=== PATIENT | female | born 1930 | race Caucasian/White ===

== ENCOUNTER 2016-06-02 12:08 | Observation (INO) | payer MEDICARE, OTHER ==
[~2016-06-02] VITALS: Ht 152.4 cm; Wt 61.1 kg
[~2016-06-02 12:08] MED LIST: ASPI81TA40 PO
[2016-06-02 12:13] VITALS: BP 138/79; PULSE 78; RESP 18; O2SAT 94
[2016-06-02] MEDS ORDERED: 0.9% Sodium Chloride 1,000 ML IV ONE (12:32)
--- NOTE | 2016-06-02 12:35 | ED.REPORT ---
HPI-General Illness Date of Service Jun 02, 2016 ED Provider: Kirit Ryan MD 86 year old female with a hx of UTI presents to the ED via EMS after she was found by a tree sapper this morning disoriented and confused. The patient was found in her bedroom on the floor covered in her own feces. When asked the patient was unable to give an accurate history of when she fell. EMS did not notice any obvious injury. Pt lives at home alone and is typically alert and oriented at baseline. Nursing Notes Stated Complaint: CONFUSION, FALL Chief Complaint: General Complaint Nursing Notes Reviewed: Yes Allergies: Coded Allergies: Penicillins (Verified Allergy, Severe, rash, 04/21/10) Scheduled Calcium Carbonate/Vitamin D3 (Calcium 500 + Vit D Caplet) 1 Each Tablet 1 EACH PO BID Fluocinolone 0.025% Oint (Fluocinolone 0.025% Oint) 60 Applic/15 Gm Oint 1 APPLIC TOPICAL BID General Time Seen by MD: 12:28 Chief Complaint Other (Found down) Hx Obtained From: EMS Unable to Obtain Hx: Mental status Arrived By: Ambulance Onset Occurred: Onset unknown Symptom Duration: Duration unknown Past Medical History Past Medical History Dementia, presumably Alzheimers 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 Reports: Hyperlipidemia Reports: Urinary tract infection Past Surgical History Transanal excision of rectal neoplasms x2 R breast lump excision x2 Reports: , Tonsillectomy Smoking History Unknown if Ever Smoker Review of Systems Unable to Obtain ROS Mental status Full Review of Systems Neurologic: Reports: Confusion Physical Exam Vital Signs Vital Signs Date Time Temp Pulse Resp B/P Pulse Ox O2 Delivery O2 Flow Rate FiO2 06/02/16 12:13 37.9 78 18 138/79 94 Room Air Initial VS: Reviewed Skin: Warm, Dry General/Constitutional: Awake Alertness: Positive: Confused, Disoriented Head / Eyes: Atraumatic, Normocephalic, PERRL Mouth: Positive: Mucous membranes dry Neck: Atraumatic, Supple, Full range of motion, No adenopathy Respiratory / Chest: Breath sounds NL, Breath sounds = bilat, No respiratory distress, No rales, No rhonchi, No wheezing Cardiovascular: Heart rate NL, Regular rhythm, Heart sounds NL, No gallop, No murmurs, No rubs, Cap refill not delayed, Peripheral circulation NL Abdomen: Soft, Non-tender, BS normoactive Lower Extremity / Pelvis / MS: Neurologic intact, Vascular intact no shortening or rotation Neurologic: No motor deficits (MAEx4) Mental Status: Positive: Confused, Disoriented to place, Disoriented to time No facial droop or asymmetry Interpretation & Diagnostics Lab Results Interpretation Result Diagram: 06/02/16 1238 06/02/16 1238 Test 06/02/16 12:20 06/02/16 12:38 Urine Color Yellow (YELLOW) Urine Appearance Clear (CLEAR,HAZY) Urine pH 6.5 (5.0-8.0) Urine Specific [place] 1.025 (1.003-1.035) Urine Protein Negativemg/dL (NEG,TRACE) Urine Glucose (UA) Negativemg/dL (NEGATIVE) Urine Ketones Negativemg/dL (NEGATIVE) Urine Occult Blood Negative (NEGATIVE) Urine Nitrite Negative (NEGATIVE) Urine Bilirubin Negative (NEGATIVE) Urine Urobilinogen Normalmg/dL (NORMAL) Urine Leukocyte Esterase Negative (NEGATIVE) Urine RBC 0-2/hpf (0-2) Urine WBC 0-5/hpf (0-5) Urine Epithelial Cells Few/hpf (NONE-MOD) Urine Crystals None seen (NONE SEEN) Urine Bacteria None/hpf (NONE-FEW) Urine Hyaline Casts None/lpf (NONE) Urine Granular Casts None seen (NONE SEEN) Urine Waxy Casts None seen (NONE SEEN) Urine Red Blood Cell Casts None seen (NONE SEEN) Urine White Blood Cell Casts None seen (NONE SEEN) Urine Mucus Present (None Seen) Urine Trichomonas None seen (NONE SEEN) Urine Yeast None (NONE SEEN) Urinalysis Comment None Urine Culture Reflexed Not indicated White Blood Count 4.8th/mm3 (3.8-10.1) Red Blood Count 4.87mil/mm3 (3.90-5.20) Hemoglobin 14.3g/dL (12.0-15.6) Hematocrit 43.5% (35.0-46.0) Mean Corpuscular Volume 89.3fL (81-100) Mean Corpuscular Hemoglobin 29.4pg (27.0-35.0) Mean Corpuscular Hemoglobin Concent 32.9% (32.0-37.0) Red Cell Distribution Width 13.2% (12.3-15.4) Platelet Count 171bil/L (150-400) Neutrophils (%) (Auto) 75.8% (40-74) Lymphocytes (%) (Auto) 12.8% (14-46) Monocytes (%) (Auto) 9.8% (4-12) Eosinophils (%) (Auto) 0.8% (0-5) Basophils (%) (Auto) 0.6% (0-3) Prothrombin Time 10.6sec (8.1-12.5) Prothromb Time International Ratio 0.99ratio Sodium Level 135mEq/L (134-144) Potassium Level 4.2mEq/L (3.5-5.2) Chloride Level 98mEq/L (97-108) Carbon Dioxide Level 22mmol/L (18-29) Blood Urea Nitrogen 16mg/dL (8-27) Creatinine 0.77mg/dL (0.57-1.00) Estimat Glomerular Filtration Rate 101mL/min (>59) Glucose Level 113mg/dL (60-99) Lactic Acid Level 1.8mmol/L (0.4-2.0) Calcium Level 9.8mg/dL (8.5-10.1) Magnesium Level 2.2mg/dL (1.6-2.6) Total Bilirubin 0.6mg/dL (0.0-1.2) Aspartate Amino Transf (AST/SGOT) 22U/L (0-50) Alanine Aminotransferase (ALT/SGPT) 14U/L (0-32) Alkaline Phosphatase 100U/L (25-165) Total Creatine Kinase 66U/L (21-215) Troponin T < 0.010ug/L (0.0-0.011) Pro-B-Type Natriuretic Peptide 366.9pg/mL (0-738) Total Protein 8.0g/dL (6.4-8.4) Albumin 3.8g/dL (3.4-5.0) Lipase 34U/L (13-60) General Lab Results Interp 1: Labs reviewed ECG Interpretation Time: 13:04 Interpreted by: ED physician Normal ECG Interpretation: Normal rate (71), Normal sinus rhythm, No acute ischemic changes X-Ray Chest Interpretation Chest Xray Interpretation: IMPRESSION: No acute cardiopulmonary disease process. Dictated by: Marquita Chavez MD, PhD on 06/02/2016 at 13:12 View: Portable, 1 view Interpretation / Wet Read by: Interpret - Radiologist CT Head Interpretation IMPRESSION: No acute intracranial disease process. Dictated by: Marquita Chavez MD, PhD on 06/02/2016 at 13:16 Study: Head CT no contrast Interpretation / Wet Read by: Interpret - Radiologist Re-Eval/Medical Decision Med Decision/Clinical Course 6-year-old female with significant confusion probably her baseline. No evidence of an acute neurologic insult or infectious process. Appears to be more delirium and dementia. She is not safe to discharge will be admitted to the hospitalist service hopefully family will be available tomorrow to assist with ultimate disposition Source of Hx: Old records Summary of Info: Records from [facility]. Pt with advanced dementia. Last visit with Dr. William December 03, 2015. "Barely managing now at home independently and will soon not be able to live in her home". Time of Eval: 14:56 Re-Evaluation/Progress Note: surgical services assistant contacted family who are in [place] and are unable to be here for 24 hours Time of Eval: 15:30 Re-Evaluation/Progress Note: Updated pt of labs, ECG and imaging results. Pt unable to care for self at home. Consultation : Referral / Consult Name: Nikko Rice DO Consulted With: Hospitalist Call Returned at: 15:29 Weigher And Grader: Will see patient, Agrees with eval, Agrees with plan, Accepts admit (to abs, no tele) Counseled Regarding: Diagnosis, Lab results, Need for admission Discharge & Departure Primary Impression: Dementia Dementia type: unspecified type Dementia behavioral disturbance: with behavioral disturbance Qualified Code: F03.91 - Unspecified dementia with behavioral disturbance Additional Impressions: Fall from ground level Confusion Disposition: ADMITTED TO HOSPITAL Discharge Condition All VS Reviewed: Yes Referrals: Steven William MD (PCP) Scribe Attestation Portions of this note were transcribed by Gloria Rice. I, (Dr. Ryan) personally performed the history, physical exam and medical decision-making; I reviewed and confirmed the accuracy of the information in the transcribed note. Signed by: Gloria Rice. 06/02/2016, [id number] copies to: Steven William MD, Donald L MD Jun 02, 2016 12:35 Gloria Rice Jun 02, 2016 12:40
[2016-06-02 12:48] LABS: APPEARANCE,URINE CLEAR (CLEAR,HAZY); COLOR,URINE YELLOW (YELLOW); OCCULT BLOOD,URINE NEGATIVE (NEGATIVE); PH,URINE 6.5 (5.0-8.0); UROBILINOGEN,URINE NORMAL (NORMAL)
[2016-06-02 12:58] LABS: BASOPHILS % (AUTO) 0.6 % (0-3); EOSINOPHILS % (AUTO) 0.8 % (0-5); MONOCYTES % (AUTO) 9.8 % (4-12); Mean Corpuscular Hemoglobin 29.4 pg (27.0-35.0); Mean Corpuscular Volume 89.3 fL (81-100); NEUTROPHILS % (AUTO) 75.8 % (40-74); Platelet Count 171 bil/L (150-400)
[2016-06-02 13:14] LABS: INR 0.99 ratio
--- NOTE | 2016-06-02 13:14 | DRSVH ---
PROCEDURE: X-RAY CHEST ONE VIEW, PORTABLE ([id number]) INDICATIONS: confusion/weakness TECHNIQUE: One view of the chest was acquired. COMPARISON: [facility] [place], [place], CR, CHEST 2VW, 04/05/2010, 11:43. [facility], CT, CHEST W/O CONTRAST, 06/25/2014, 11:00. [facility], CR, CHEST 2VW, 01/12/2015, 3:45 PM. FINDINGS: Surgical changes and devices: None. Lungs and pleura: No pleural effusions or pneumothorax. Lungs are clear of acute opacities. Interst itial prominence is stable compared to prior examination. Mediastinum: Mediastinal contours appear normal. Heart size is normal. Bones and chest wall: No suspicious bony lesions. Overlying soft tissues appear unremarkable. IMPRESSION: No acute cardiopulmonary disease process. Dictated by: Marquita Chavez MD, PhD on 06/02/2016 at 13:12 Approved by: Marquita Chavez MD, PhD on 06/02/2016 at 13:12
--- NOTE | 2016-06-02 13:17 | DRSVH ---
PROCEDURE: CT BRAIN WITHOUT CONTRAST ([id number]) INDICATIONS: confusion TECHNIQUE: Noncontrast 4.5 mm thick angled axial sections acquired from the foramen magnum to the vertex, with c oronal reformats. COMPARISON: None. FINDINGS: Image quality: Limited by patient motion artifact. CSF spaces: Basal cisterns are patent. No extra-axial fluid collections. The ventricles are symmet macario in size and shape. Brain: No intracranial bleeds or masses. There is cerebral volume loss for age, with resultant vent ricular and sulcal prominence. There are periventricular and deep white matter chronic small vessel ischemic changes. There is intracranial internal carotid artery and vertebral artery atherosclerosis . Skull and face: Calvarium and visualized facial bones appear intact, without suspicious lesions. Sinuses: Mucosal thickening noted in the right maxillary sinus. Small air-fluid level noted right max illary sinus. Large polyp versus mucous retention cyst noted in the left maxillary sinus. Scattered o pacities noted in the ethmoid air cells bilaterally. Mucosal thickening noted in the left frontal sin us. The mastoids are clear. IMPRESSION: No acute intracranial disease process. Dictated by: Marquita Chavez MD, PhD on 06/02/2016 at 13:16 Approved by: Marquita Chavez MD, PhD on 06/02/2016 at 13:16
[2016-06-02 13:26] LABS: Lipase 34 U/L (13-60); Magnesium 2.2 mg/dL (1.6-2.6)
[2016-06-02 14:07] LABS: TROPONIN T < 0.010 ug/L (0.0-0.011)
[2016-06-02] MEDS ORDERED: CALC-78 PO (14:48)
[2016-06-02] MEDS ORDERED: FL.025O15 TOPICAL (14:48)
[2016-06-02 16:53] VITALS: PULSE 77
[2016-06-02] MEDS ORDERED: Alum-Mag Hydrox-Simeth 30 mL Suspension PO PRN (16:55)
[2016-06-02] MEDS ORDERED: Polyethylene Glycol (PEG) 17 Gm Powder PO PRN (16:55)
[2016-06-02] MEDS: 0.9% Sodium Chloride 1,000 ML IV SCH (16:55)
[2016-06-02] MEDS ORDERED: Ondansetron 2 mg/mL 2 mL Inj IVPUSH PRN (16:55)
[2016-06-02 17:09] VITALS: BP 177/79; PULSE 73; RESP 28; O2SAT 95
--- NOTE | 2016-06-02 17:38 | PCM.HPMED ---
Subjective Date of Service Jun 02, 2016 Primary Provider: Admitting Physician: Nikko Rice DO Primary Care Physician: Steven William MD Attending Physician: Nikko Rice DO Chief Complaint: Fall, altered mental status History of Present Illness: This is an 86-year-old female with past medical history of dementia, lung neoplasm, hyperlipidemia. Her history was obtained by chart review and discussion with the ER physician. The patient is very pleasantly confused and unable to provide any significant information. She apparently was found by a photography and prints curator this morning disoriented and confused. The patient was found in her bedroom on the floor covered in her own feces. When asked the patient was unable to give an accurate history of when she fell. Evaluation did not reveal any obvious injuries. The patient denies any current pain. Patient lives home alone, previous PCP visit does indicate the patient has advanced dementia. There was a question if she would be able to take care of herself for very much longer at home. Family have been notified by case management in the emergency room and planning on traveling up here within the next 24 hours. 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 NAD Head: Normocephalic, atraumatic Eyes: BELA, EOMI, no scleral Icterus Oropharynx: pink, dry oral mucosa Neck: supple, trachea midline, no adenopathy Chest: clear to auscultation B/L, no wheezing rales or rhonchi Heart: Regular rate and rhythm. Normal S1, S2, no murmurs noted Abdomen: soft, non-tender. Bowel sounds are normoactive. No guarding or rebound. Extremities: no cyanosis, clubbing or edema. No acute joint inflammation. Skin: no acute rashes or lesions noted Neuro: Cranial nerves II-XII intact, no focal findings. Psych: Poor judgement and insight. Lab and Diagnostics Result Diagram: 06/02/16 1238 06/02/16 1238 Assessment & Plan This is an 86-year-old female with severe dementia admitted for acute altered mental status versus progressive dementia. Found down, unknown etiology behind her fall, no injuries noted. Negative workup in the emergency room, however, due to her altered mental status unable to discharge her home safely. Acute AMS: -No source of acute encephalopathy noted -May be progressive dementia. -Negative CT head, UA, chest x-ray, EKG, labs -Treat dehydration -Check ammonia, TSH. -Rule out dysrhythmia, follow on telemetry overnight. Dehydration: -Clinically dry, we will provide IV fluids overnight. Gen. debility: -Fall precautions -Consult PT for evaluation and treatment. History of lung cancer: -Chest x-ray was clear, no mention of mass. -Unknown status of her metastatic disease. CODE STATUS: Unable to determine due to AMS, will leave full code for now. DVT prophylaxis: Lovenox Disposition: Consult case management for assistance with safe discharge planning. Time spent 60 minutes Nikko Rice DO Jun 02, 2016 17:02
--- NOTE | 2016-06-02 17:49 | NUR ---
Arrival to 3008 Pt came from ED. She was found down this morning by caregiver. Pt is not alert. She only knows her name. Pt was put on tele, pt is pulling the wires off and trying to eat them. Pt may need sitter for tonight
[2016-06-02 20:37] VITALS: BP 159/66; PULSE 66; RESP 34; O2SAT 95
[2016-06-03] MEDS: 0.9% Sodium Chloride 1,000 ML IV SCH ×2 (04:58→15:29)
[2016-06-03 06:10] VITALS: BP 146/83; PULSE 64; RESP 28; O2SAT 93
[2016-06-03 07:08] LABS: Mean Corpuscular Hemoglobin 29.6 pg (27.0-35.0); Mean Corpuscular Volume 88.3 fL (81-100)
--- NOTE | 2016-06-03 12:08 | NUR ---
Observation information provided and explained to pt's son, who is at bedside.
--- NOTE | 2016-06-03 13:35 | PCM.PNMED ---
Subjective Date of Service Jun 03, 2016 Subjective Still very confused, unimproved. No indication of pain. Her son is present at bedside today. We did discuss discharge planning, he would like to discuss further with his family and case management. Exam Vital Signs Vital Sign - Last Date Time Temp Pulse Resp B/P Pulse Ox O2 Delivery O2 Flow Rate FiO2 06/03/16 06:10 36.9 64 28 146/83 93 Room Air Intake and Output 06/02/16 06/02/16 06/03/16 Cumulative From/Thru 15:00 23:00 07:00 06/02/16 17:10 - 06/03/16 06:01 Intake Total 220 ml 1131 ml 1351 ml Balance 220 ml 1131 ml 1351 ml Intake Oral 220 ml 220 ml IV Total 1131 ml 1131 ml # Voids 1 1 Exam General: Alert, oriented to self only. NAD Head: Normocephalic, atraumatic Eyes: BELA, EOMI, no scleral Icterus Chest: clear to auscultation B/L, no wheezing rales or rhonchi Heart: Regular rate and rhythm. Normal S1, S2, no murmurs noted Abdomen: soft, non-tender. Bowel sounds are normoactive. No guarding or rebound. Extremities: no cyanosis, clubbing or edema. IVs and Medications Medications Reviewed: Medications were reviewed in detail Lab and Diagnostics Result Diagram: 06/03/1664406/03/16644 Assessment & Plan This is an 86-year-old female with severe dementia admitted for acute altered mental status versus progressive dementia. Found down, unknown etiology behind her fall, no injuries noted. Negative workup in the emergency room, however, due to her altered mental status unable to discharge her home safely. Case management consulted, discussing with family discharge planning. Acute AMS: -No source of acute encephalopathy noted -May be progressive dementia. -Negative CT head, UA, chest x-ray, EKG, labs -dehydration treated with no improvement of mental status -Negative ammonia, TSH. -May have viral syndrome contributing. Dehydration: -She was given IV fluids overnight. Gen. debility: -Fall precautions -Continue PT History of lung cancer: -Chest x-ray was clear, no mention of mass. -Unknown status of her metastatic disease. CODE STATUS: Unable to determine due to AMS, will leave full code for now. DVT prophylaxis: Lovenox Disposition: Consult case management for assistance with safe discharge planning. Nikko Rice DO Jun 03, 2016 13:35
--- NOTE | 2016-06-03 14:36 | NUR ---
Evaluation completed. Please go to "Notes" then click on "Assessments and Notes" (bottom left corner of screen). Then select appropriate discipline tab on top of screen.
--- NOTE | 2016-06-03 14:53 | NUR ---
Social Work-initial assessment: Data:See initial assessment. Pt is a 86 y/o female who was admitted on 06/02/16 for acute confusional state per H&P. Pt's insurance is [facility] and PCP is Steven William MD. EMR Reviewed. Pt resides at home alone where she remains independent with ADLs. Pt has advancing dementia and does not use any DME. Pt has no HH Or SNF history. At this time, pt is not able to be by herself and per MD will require 24/7 care. NARCISA met with pt's son Pancho at bedside to discuss options. Son Pancho states pt has money to pay for increased caregiving at home, but he feels like pt may benefit from placement at either memory care or assisted living. SW called [facility], [facility], [facility], [facility], [facility], and [facility] about options. All but [facility], [facility], and [facility] do not have space. SW also provided son with Senior Resource guidebook. Son plans on touring some facilities and getting more information. Son would like to speak with his brother, but feels comfortable likely taking pt home tomorrow to provide 24/7 care and work on respite skilled nursing placement options from home. SW discussed Medicaid, but son feels like pt would have private pay finances to pay for many years. SW will continue to follow. Assessment;Pt who will need placement or 24/7 care. Plan:Pt to likely discharge home with son to provide 24/7 care at home, which working on respite options. SW provided son with Respite options and senior resources guidebook. SW also discussed increasing pt's private pay caregiving through [facility] to 24/7. NARCISA will continue to follow. ISAIAH Liang Addendum: 06/03/16 at 1504 by STEPHANIE RO Amended: Links added.
[2016-06-03 14:55] VITALS: BP 113/65; PULSE 82; RESP 36; O2SAT 93
--- NOTE | 2016-06-03 18:24 | NUR ---
Loose stool Pt. has had 3 loose BMs today. Paged MD to see if c-diff sample is wanted. Pt. has been very pleasant and cooperative today. [place]. High falls risk, so bed and harshal alarm in use, along with floor pads, frequent checks, and nonslip socks.
[2016-06-03 21:30] VITALS: BP 126/75; PULSE 65; RESP 20; O2SAT 94
[2016-06-04 04:40] VITALS: BP 137/75; PULSE 62; RESP 20; O2SAT 96
--- NOTE | 2016-06-04 12:36 | NUR ---
No IV Pts IV came out last night. MDs notified and are OK with pt. having no IV.
--- NOTE | 2016-06-04 13:17 | NUR ---
Social Work-readiness for discharge: Data:EMR Reviewed. Pt is on day 2 of hospitalization for acute confusional state per H&P. Pt may be ready to discharge later today or tomorrow. PT has cleared pt for home with 24/7 care, pt ambulated [address]ft. ST has cleared for home, no needs. SW followed up with lenny Deleon at bedside to discuss discharge planning, SW role explained. Lenny Deleon states he spoke with his brother and they are still trying to sort a few things out, but Lenny Deleon feels comfortable taking pt home and providing 24/7 care until they get assisting from caregiving through [facility] or get pt into Assisted living or memory care. SW has provided them with all resources and facilities that have openings. Son confirms that he will stay with pt 24/7 or have someone provide this level of care at home while they work on alternative options. MD has been updated. SW will continue to follow. Assessment:Pt who will need 24/7 care. Plan:Pt to discharge home with lenny Deleon to provide 24/7 care at home. Lenny Deleon and other lenny Black to work on longer term planning from home IE paying privately for in home care ( pt already connected with [facility]) or getting pt into assisted living or memory care, all resources have been provided. Lenny states pt has private funds to be able to pay for this. SW will continue to follow. ISAIAH Liang
[2016-06-04 13:44] VITALS: BP 144/84; PULSE 83; RESP 20; O2SAT 94
--- NOTE | 2016-06-04 15:29 | PCM.PNMED ---
Subjective Date of Service Jun 04, 2016 Subjective Patient has had some ongoing diarrhea issues, no fevers noted. No current abdominal pain although she has had some during this hospital stay. No family present when I visit with her today. Exam Vital Signs Vital Sign - Last Date Time Temp Pulse Resp B/P Pulse Ox O2 Delivery O2 Flow Rate FiO2 06/04/16 13:44 36.9 83 20 144/84 94 Room Air Intake and Output 06/03/16 06/03/16 06/04/16 Cumulative From/Thru 15:00 23:00 07:00 06/02/16 17:10 - 06/04/16 05:25 Intake Total 0 ml 1632 ml 120 ml 3103 ml Output Total 50 ml 50 ml Balance 0 ml 1632 ml 70 ml 3053 ml Intake Oral 0 ml 700 ml 120 ml 1040 ml IV Total 932 ml 2063 ml Output Urine Total 50 ml 50 ml # Voids 2 4 4 11 # Bowel Movements 0 3 2 5 Exam General: Alert, Oriented X1, confused, NAD Head: Normocephalic, atraumatic Eyes: BELA, EOMI, no scleral Icterus Chest: clear to auscultation B/L, no wheezing rales or rhonchi Heart: Regular rate and rhythm. Normal S1, S2, no murmurs noted Abdomen: soft, non-tender. Mild distention. Bowel sounds are normoactive. No guarding or rebound. Extremities: no cyanosis, clubbing or edema. IVs and Medications Medications Reviewed: Medications were reviewed in detail Lab and Diagnostics Result Diagram: 06/03/1645 06/03/16 0645 Assessment & Plan This is an 86-year-old female with severe dementia admitted for acute altered mental status versus progressive dementia. Found down, unknown etiology behind her fall, no injuries noted. Negative workup in the emergency room, however, due to her altered mental status unable to discharge her home safely. Case management consulted, discussing with family discharge planning. Acute AMS: -No source of acute encephalopathy noted -May be progressive dementia. -Negative CT head, UA, chest x-ray, EKG, labs -dehydration treated with no improvement of mental status -Negative ammonia, TSH. -May have viral syndrome contributing. Dehydration: -She was given IV fluids, these been discontinued. Diarrhea: -Potential infectious source, we will check a PCR panel Gen. debility: -Fall precautions -Continue PT History of lung cancer: -Chest x-ray was clear, no mention of mass. -Unknown status of her metastatic disease. CODE STATUS: Unable to determine due to AMS, will leave full code for now. DVT prophylaxis: Lovenox Disposition: Consulted case management for assistance with safe discharge planning. Nikko Rice DO Jun 04, 2016 15:29
[2016-06-04 20:58] VITALS: BP 142/83; PULSE 89; RESP 20; O2SAT 95
[2016-06-05 04:52] VITALS: BP 158/72; PULSE 62; RESP 18; O2SAT 94
[2016-06-05 10:52] LABS: Mean Corpuscular Hemoglobin 29.2 pg (27.0-35.0); Mean Corpuscular Volume 87.3 fL (81-100)
--- NOTE | 2016-06-05 12:36 | PCM.DIMED ---
Discharge Instructions Date of Service Jun 05, 2016 Dates of Hospitalization Jun 02, 2016 at 15:14 Discharge Diagnosis Discharge Diagnosis Acute Altered mental status Dehydration: Diarrhea: Generalized debility: History of lung cancer: Diet No restrictions Activity No restrictions Call your provider Fever or Chills, Shortness of breath, Chest pain, Vomitting, Excessive diarrhea , Weakness (unilateral) Patient Instructions I recommend that you follow up with your PCP to fill out a POLST form, so that your desires are known if you have to come back to the hospital at any time. You are going home with family, we recommend that you do not live alone anymore. I recommend that you have 24 hour care at home or your need to move into a memory care facility Please schedule a follow up appointment with your Primary Care Provider to discuss this hospitalization. Follow-up Provider: Steven William MD Follow-up with PCP in: 1 week Verónica Mckenzie DO Jun 05, 2016 10:18
--- NOTE | 2016-06-05 12:45 | NUR ---
Social Work-discharge: Data:EMR Reviewed. Pt is on day 3 of hospitalization for acute confusional state per H&P. Pt is medically stable to discharge today. SW followed up with son Pancho [phone] at bedside to discuss. Son states he is planning on taking his mother home today. Pancho will be providing 24/7 care for his mother at home, until him and his brother can meet to talk about next steps. Pt already has visiting angels coming in, which they can increase to 24/7 care or resources have been provided for assisted living and memory care. Son has no concerns about the next step and his brother will be back in town on Sunday. PT/ST have cleared pt for home with 24/7 assist. All updated and agreeable to plan. Assessment:PT to discharge home with 24/7 care. Plan:Pt to discharge home today via POV. Son Pancho to provide 24/7 care until they have either riveter helper at home for 24/7 care or moved pt into Assisted living or memory care. All updated and agreeable to plan. ISAIAH Liang
[2016-06-05 13:16] VITALS: BP 131/73; PULSE 66; RESP 18; O2SAT 94
--- NOTE | 2016-06-05 13:45 | NUR ---
Discharge Pt discharged with her son via POV to home. No Prescriptions were given. Son knows he is going to follow up and find a memory care facility for patient. until then son will be living and taking care of patient 25/12.
--- NOTE | 2016-06-05 13:57 | PCM.DC.MED ---
Discharge Summary Date of Service Jun 05, 2016 Dates of Hospitalization Date of Hospital Admission Jun 02, 2016 at 15:14 Date of Discharge: Jun 05, 2016 Providers: Admitting Physician: Nikko Rice DO Primary Care Physician: Steven William MD Attending Physician: Nikko Rice DO Diagnosis at Time of Discharge Diagnosis at Time of Discharge Acute Altered mental status Dehydration: Diarrhea: Generalized debility: History of lung cancer: Procedures XRay, CTs & MRIs PROCEDURE: X-RAY CHEST ONE VIEW, PORTABLE ([id number]) FINDINGS: Surgical changes and devices: None. Lungs and pleura: No pleural effusions or pneumothorax. Lungs are clear of acute opacities. Interstitial prominence is stable compared to prior examination. Mediastinum: Mediastinal contours appear normal. Heart size is normal. Bones and chest wall: No suspicious bony lesions. Overlying soft tissues appear unremarkable. IMPRESSION: No acute cardiopulmonary disease process. Dictated by: Marquita Chavez MD, PhD on 06/02/2016 at 13:12 Approved by: Marquita Chavez MD, PhD on 06/02/2016 at 13:12 PROCEDURE: CT BRAIN WITHOUT CONTRAST FINDINGS: Image quality: Limited by patient motion artifact. CSF spaces: Basal cisterns are patent. No extra-axial fluid collections. The ventricles are symmetric in size and shape. Brain: No intracranial bleeds or masses. There is cerebral volume loss for age , with resultant ventricular and sulcal prominence. There are periventricular and deep white matter chronic small vessel ischemic changes. There is intracranial internal carotid artery and vertebral artery atherosclerosis. Skull and face: Calvarium and visualized facial bones appear intact, without suspicious lesions. Sinuses: Mucosal thickening noted in the right maxillary sinus. Small air-fluid level noted right maxillary sinus. Large polyp versus mucous retention cyst noted in the left maxillary sinus. Scattered opacities noted in the ethmoid air cells bilaterally. Mucosal thickening noted in the left frontal sinus. The mastoids are clear. IMPRESSION: No acute intracranial disease process. Dictated by: Marquita Chavez MD, PhD on 06/02/2016 at 13:16 Approved by: Marquita Chavez MD, PhD on 06/02/2016 at 13:[address] Rice's note on 06/02/16 "This is an 86-year-old female with past medical history of dementia, lung neoplasm, hyperlipidemia. Her history was obtained by chart review and discussion with the ER physician. The patient is very pleasantly confused and unable to provide any significant information. She apparently was found by a staff radiologist this morning disoriented and confused. The patient was found in her bedroom on the floor covered in her own feces. When asked the patient was unable to give an accurate history of when she fell. Evaluation did not reveal any obvious injuries. The patient denies any current pain. Patient lives home alone, previous PCP visit does indicate the patient has advanced dementia. There was a question if she would be able to take care of herself for very much longer at home. Family have been notified by case management in the emergency room and planning on traveling up here within the next 24 hours." Hospital Course This is an 86-year-old female with severe dementia admitted for acute altered mental status versus progressive dementia. Found down, unknown etiology behind her fall, no injuries noted. Throughout hospitalization, no source of altered mental status determined. Pt likely has dementia. Pt lived alone, and it was felt she could not safely be discharged home alone. Pt was discharged home with her son who agreed to stay with patient 25/12 until more permanent housing( memory care facility etc) is organized. Pt was stable at time of discharge. Acute altered mental status now determined to be more likely due to dementia, present on admission -No source of acute encephalopathy noted -Likely progressive dementia. -Negative CT head, UA, chest x-ray, EKG, labs -Dehydration treated with no improvement of mental status -Negative ammonia, TSH. -Recommend pt no longer live independently -Recommend PCP discuss POLST form Acute dehydration, resolved -Pt tolerating oral intake at discharge Acute diarrhea, resolved -Stool PCR negative Generalized debility: -Recommend outpatient physical therapy History of lung cancer: -Chest x-ray was clear, no mention of mass. -Unknown status of her metastatic disease. Exam Vital Signs (Last) Date Time Temp Pulse Resp B/P Pulse Ox O2 Delivery O2 Flow Rate FiO2 06/05/16 13:16 36.7 66 18 131/73 94 Room Air Exam General: Pt sitting in bed eating breakfast. No acute distress, well-developed, well-nourished HEENT: Normocephalic, atraumatic. Anicteric sclerae, moist conjunctivae. Oropharynx with moist mucosa. Neck: Supple with full range of motion. Cardiovascular: Regular rate and rhythm with no murmurs, rubs, or gallops appreciated Pulmonary: Clear to auscultation bilaterally with no crackles, wheezes, or rhonchi. Normal respiratory effort with no use of accessory muscles. Abdomen: Bowel tones present. Soft, nontender, nondistended. Extremities: No clubbing, cyanosis, edema appreciated. Skin: Normal temperature, turgor, and texture; no rash, ulcers, or subcutaneous nodules appreciated. Psychiatric: Pt is only oriented to person( knows own name), when asked what day it was pt responded- "have a great day" when asked month or year pt responded "that's nice dear", when asked location pt responded "I'm right here, not there". Normal mood and affect. Alert. Test 06/02/16 12:20 06/02/16 12:38 06/02/16 18:00 06/03/16 06:45 Urine Color Yellow (YELLOW) Urine Appearance Clear (CLEAR,HAZY) Urine pH 6.5 (5.0-8.0) Urine Specific [place] 1.025 (1.003-1.035) Urine Protein Negativemg/dL (NEG,TRACE) Urine Glucose (UA) Negativemg/dL (NEGATIVE) Urine Ketones Negativemg/dL (NEGATIVE) Urine Occult Blood Negative (NEGATIVE) Urine Nitrite Negative (NEGATIVE) Urine Bilirubin Negative (NEGATIVE) Urine Urobilinogen Normalmg/dL (NORMAL) Urine Leukocyte Esterase Negative (NEGATIVE) Urine RBC 0-2/hpf (0-2) Urine WBC 0-5/hpf (0-5) Urine Epithelial Cells Few/hpf (NONE-MOD) Urine Crystals None seen (NONE SEEN) Urine Bacteria None/hpf (NONE-FEW) Urine Hyaline Casts None/lpf (NONE) Urine Granular Casts None seen (NONE SEEN) Urine Waxy Casts None seen (NONE SEEN) Urine Red Blood Cell Casts None seen (NONE SEEN) Urine White Blood Cell Casts None seen (NONE SEEN) Urine Mucus Present (None Seen) Urine Trichomonas None seen (NONE SEEN) Urine Yeast None (NONE SEEN) Urinalysis Comment None Urine Culture Reflexed Not indicated Neutrophils (%) (Auto) 75.8% (40-74) Lymphocytes (%) (Auto) 12.8% (14-46) Monocytes (%) (Auto) 9.8% (4-12) Eosinophils (%) (Auto) 0.8% (0-5) Basophils (%) (Auto) 0.6% (0-3) Prothrombin Time 10.6sec (8.1-12.5) Prothromb Time International Ratio 0.99ratio Lactic Acid Level 1.8mmol/L (0.4-2.0) Magnesium Level 2.2mg/dL (1.6-2.6) Total Bilirubin 0.6mg/dL (0.0-1.2) Aspartate Amino Transf (AST/SGOT) 22U/L (0-50) Alanine Aminotransferase (ALT/SGPT) 14U/L (0-32) Alkaline Phosphatase 100U/L (25-165) Total Creatine Kinase 66U/L (21-215) Troponin T < 0.010ug/L (0.0-0.011) Pro-B-Type Natriuretic Peptide 366.9pg/mL (0-738) Total Protein 8.0g/dL (6.4-8.4) Albumin 3.8g/dL (3.4-5.0) Lipase 34U/L (13-60) Ammonia < 17.0ug/dL (18-53) Thyroid Stimulating Hormone (TSH) 1.790uIU/mL (0.450-4.500) Test 06/05/16 10:40 White Blood Count 5.3th/mm3 (3.8-10.1) Red Blood Count 4.55mil/mm3 (3.90-5.20) Hemoglobin 13.3g/dL (12.0-15.6) Hematocrit 39.7% (35.0-46.0) Mean Corpuscular Volume 87.3fL (81-100) Mean Corpuscular Hemoglobin 29.2pg (27.0-35.0) Mean Corpuscular Hemoglobin Concent 33.5% (32.0-37.0) Red Cell Distribution Width 12.8% (12.3-15.4) Platelet Count 210bil/L (150-400) Sodium Level 140mEq/L (134-144) Potassium Level 4.2mEq/L (3.5-5.2) Chloride Level 103mEq/L (97-108) Carbon Dioxide Level 27mmol/L (18-29) Blood Urea Nitrogen 18mg/dL (8-27) Creatinine 0.65mg/dL (0.57-1.00) Estimat Glomerular Filtration Rate 123mL/min (>59) Glucose Level 102mg/dL (60-99) Calcium Level 9.6mg/dL (8.5-10.1) Discharge Medications Discharge Medications Calcium Carbonate/Vitamin D3 (Calcium 500 + Vit D Caplet) 1 Each Tablet 1 EACH PO BID (Reported) Fluocinolone 0.025% Oint (Fluocinolone 0.025% Oint) 60 Applic/15 Gm Oint 1 APPLIC TOPICAL BID (Reported) Followup Plan Disposition: Home with family for constant care or pt needs to be admitted to memory care facility Discharge Diet: No restrictions Discharge Activity: No restrictions Patient Instructions I recommend that you follow up with your PCP to fill out a POLST form, so that your desires are known if you have to come back to the hospital at any time. You are going home with family, we recommend that you do not live alone anymore. I recommend that you have 24 hour care at home or your need to move into a memory care facility Please schedule a follow up appointment with your Primary Care Provider to discuss this hospitalization. Follow-up Provider: Steven William MD Follow-up with PCP in: 1 week copies to: Steven William MD, Tara L DO Jun 05, 2016 13:57
== END 2016-06-05 13:40 | disposition home or self-care (01) ==
LOC: SED 12:08 → EDBD 12:08 → MPC 15:14 → INTOOBSV 15:14
PROVIDERS: ADMIT Family Medicine; ATTEND Family Medicine
DX: R41.82 Altered mental status, unspecified (principal); E86.0 Dehydration; R19.7 Diarrhea, unspecified; R53.81 Other malaise; Z85.118 Personal history of other malignant neoplasm of bronchus and lung; W19.XXXA Unspecified fall, initial encounter; Y92.019 Unspecified place in single-family (private) house as the place of occurrence of the external cause; Y93.9 Activity, unspecified; Y99.9 Unspecified external cause status
CPT/HCPCS: 36415; 51701; 70450; 71010; 80048; 80053; 81000; 82140; 82550; 83605; 83690; 83735; 83880; 84443; 84484; 85025; 85027; 85610; 87040; 87507; 90791; 92526; 92610; 93005; 96360; 97001; 99285; G0378; G8996; G8997; G8998; J1650; J7030